=== PATIENT | male | born 2000 | race Caucasian/White ===

== ENCOUNTER 2025-10-07 13:24 | Emergency (ER) | payer OTHER ==
[~2025-10-07] VITALS: Ht 175.3 cm; Wt 66.0 kg
[2025-10-07 13:29] VITALS: TEMP 36.7; O2SAT 99
[2025-10-07] MEDS ORDERED: LIDOCAINE HCL/EPINEPHRINE 1%-EPI 1:100,000 20ML VIAL MC ONE (16:00)
[2025-10-07] MEDS ORDERED: CEPH500T MT (17:45)
[2025-10-07 18:00] VITALS: BP 116/77; PULSE 87; RESP 18; O2SAT 99
== END 2025-10-07 18:02 | disposition home or self-care (01) ==
LOC: ER 13:24
DX: S61.512A Laceration without foreign body of left wrist, initial encounter (principal); X58.XXXA Exposure to other specified factors, initial encounter; Y93.89 Activity, other specified; Y92.89 Other specified places as the place of occurrence of the external cause; Y99.8 Other external cause status
CPT/HCPCS: 99283; 73110; 12001; J2004

== ENCOUNTER 2025-10-15 08:33 | Emergency (ER) | payer OTHER ==
[~2025-10-15] VITALS: Ht 175.3 cm; Wt 70.0 kg
[~2025-10-15 08:33] MED LIST: CEPH500T MT
[2025-10-15 08:43] VITALS: O2SAT 100
[2025-10-15 09:28] VITALS: BP 109/55; PULSE 60; RESP 16; TEMP 37; O2SAT 100
== END 2025-10-15 10:30 | disposition home or self-care (01) ==
LOC: ER 08:33
DX: S61.512D Laceration without foreign body of left wrist, subsequent encounter (principal); X58.XXXD Exposure to other specified factors, subsequent encounter
CPT/HCPCS: 99282; Z7610 ×2